=== PATIENT | male | born 1975 | race Caucasian/White ===

== ENCOUNTER 2019-05-07 18:37 | Inpatient (IN) | payer BC, OTHER ==
[~2019-05-07] VITALS: Ht 165.1 cm; Wt 68.0 kg
--- NOTE | 2019-05-07 18:37 | NUR ---
"BIBRA 80 C/O SUBSTERNAL CP S/P HEIMLICH MANEUVER, PT WAS CHOKING" PT AAOX4, -SOB, NADN OTED, VSS, PENDING MD MARQUEZ
[2019-05-07] MEDS ORDERED: ONDANSETRON HCL/PF 4 MG/2 ML VIAL IVP ONE (19:00)
[2019-05-07] MEDS ORDERED: IV NS 0.9% 1,000 ML BAG IV ONE (19:00)
[2019-05-07 19:10] LABS: BASOPHILS % (AUTO) 0.5 % (0.0-2.0); EOSINOPHILS % (AUTO) 5.9 % (0.0-6.0); HEMATOCRIT 41 % (39-51); HEMOGLOBIN 14.1 g/dL (13.5-17.5); LYMPHOCYTES # (AUTO) 2.6 /CMM (0.8-4.8); LYMPHOCYTES % (AUTO) 35.6 % (20.0-44.0); MEAN CORPUSCULAR HGB CONC 34 g/dl (31.0-36.0); MEAN CORPUSCULAR VOLUME 101 fL (80-96); MONOCYTES # (AUTO) 0.7 /CMM (0.1-1.30); MONOCYTES % (AUTO) 9.1 % (2.0-12.0); NEUTROPHILS # (AUTO) 3.6 /CMM (1.8-8.9); NEUTROPHILS % (AUTO) 48.9 % (43.0-81.0); PLATELET COUNT (AUTO) 279 /CMM (150-450); RED BLOOD CELL COUNT(AUTO) 4.08 MIL/uL (4.5-6.0); WHITE BLOOD COUNT (AUTO) 7.4 K/uL (4.3-11.0)
[2019-05-07] MEDS ORDERED: ONDANSETRON HCL/PF 4 MG/2 ML VIAL ONE (19:11)
[2019-05-07] MEDS ORDERED: MORPHINE SULFATE INJ 4 MG/ML DISP.SYRIN ONE ×2 (19:12→20:54)
[2019-05-07 19:23] LABS: CALCIUM, SERUM 8.2 mg/dL (8.5-10.1); CARBON DIOXIDE 31 mmol/L (21-32); CHLORIDE 102 mmol/L (98-107); CREATININE 1.3 mg/dL (0.6-1.3); GLUCOSE 140 mg/dL (74-106); POTASSIUM 3.8 mmol/L (3.5-5.1); SODIUM SERUM 140 mmol/L (136-145); UREA NITROGEN, BLOOD 17 mg/dL (7-18)
[2019-05-07] MEDS: MORPHINE SULFATE INJ 2 MG/ML DISP.SYRIN IV ONE ×2 (19:23→20:57)
[2019-05-07 19:29] LABS: ALANINE AMINOTRANSFERASE 49 U/L (12-78); ALBUMIN 3.7 g/dL (3.4-5.0); ALKALINE PHOSPHATASE 69 U/L (46-116); ASPARTATE AMINOTRANSFERASE 42 U/L (15-37); BILIRUBIN,DIRECT 0.1 mg/dL (0.0-0.2); BILIRUBIN,TOTAL 0.1 mg/dL (0.2-1.0); LIPASE 130 U/L (73-393); TOTAL PROTEIN, SERUM 6.5 g/dL (6.4-8.2)
[2019-05-07] MEDS ORDERED: IV NS 0.9% 250 ML IV ONE (19:37)
[2019-05-07] MEDS ORDERED: IOHEXOL-350 100 ML VIAL IV ONE (19:37)
[2019-05-07] MEDS ORDERED: CT SWABBABLE VALVE TRANS SET 1 EA INFUS.SET MC ONE (19:37)
[2019-05-07] MEDS ORDERED: LIDOCAINE 2% JEL UROJET 10 ML MM ONE (19:41)
--- NOTE | 2019-05-07 20:12 | NUR ---
CALLED DR. LUNA [phone] GI
--- NOTE | 2019-05-07 20:29 | NUR ---
CALLED JEREMY [phone] LOR AGAIN PER MD REQUEST.
--- NOTE | 2019-05-07 20:42 | NUR ---
CALLED FOR TELE BED... TURNED IN MOVE SHEET
--- NOTE | 2019-05-07 20:48 | NUR ---
GOT BED 322-2
--- NOTE | 2019-05-07 21:03 | NUR ---
REPORT GIVEN TO BIANKA WANG FOR JOVANNA, PT WILL BE TRANSPORTED TO 3RD FLOOR VIA [facility]
[2019-05-07 21:30] VITALS: BP 130/96
--- NOTE | 2019-05-07 21:30 | NUR ---
SPECIAL EVENTS COORDINATORCAR EXAMINER NOTES Received patient from ER via [facility] accompanied by 2 ER staff. Admitted to Tele 322-2 due to Chest Pain under the service of Dr. Buck. Assisted patient to bed comfortably. Patient noted able to walk from [facility] to bed with stable gait. Admission routine done. Skin assessment done, per patient no skin/wound issues identified. On tele monitor with SR noted. Patient's belongings inventory completed by the assigned DIRECTOR OF BUSINESS SERVICES. Admission orders noted and carried out. Kept patient on bed comfortably, clean and dry. Call light within easy reach. On fall precautions. Will continue to monitor accordingly.
[2019-05-07] MEDS ORDERED: MORPHINE SULFATE INJ 2 MG/ML DISP.SYRIN IV PRN (23:00)
[2019-05-07] MEDS ORDERED: HYDROCODONE/APAP 5/325MG 1 EACH TABLET PO PRN (23:00)
[2019-05-07] MEDS ORDERED: ACETAMINOPHEN 325 MG TABLET PO PRN (23:00)
[2019-05-07] MEDS ORDERED: Z GUARD REMEDY 2 OZ OINT TP PRN (23:00)
[2019-05-07] MEDS ORDERED: MAG HYDROX/AL HYDROX/SIMETH 30 ML UDC PO PRN (23:00)
[2019-05-07] MEDS ORDERED: MAGNESIUM HYDROXIDE 30 ML UDC PO PRN (23:00)
[2019-05-07] MEDS ORDERED: ZOLPIDEM TARTRATE 5 MG TABLET PO PRN (23:00)
--- NOTE | 2019-05-07 23:00 | NUR ---
GLUE SPREADING MACHINE OPERATOR NOTES Received a call from MICHAEL Ybarra to refer patient's condition to Dr. Mccollum. Called Dr. Mccollum, with orders noted and carried out.
[2019-05-07] MEDS: ONDANSETRON HCL/PF 4 MG/2 ML VIAL IVP PRN (23:48)
[2019-05-07] MEDS: IV D5/0.45 NACL 1,000 ML IV PRN (23:48)
[2019-05-07] MEDS ORDERED: PANTOPRAZOLE 40 MG VIAL IV ONE (23:49)
[2019-05-08] VITALS: BP 133/76
--- NOTE | 2019-05-08 00:24 | NUR ---
INTERIOR DESIGN PROJECT MANAGER NOTES Received orders from Dr. Buck, noted and carried out. Protonix IV out of stock, notified ordering MD. Changed into IV Pepcid as ordered, noted and carried out. First dose to start now, administered as ordered. Patient still noted of occasional spitting with blood. Will continue to monitor accordingly.
[2019-05-08] MEDS ORDERED: FAMOTIDINE/PF INJ 20 MG/2 ML VIAL IV ONE (00:30)
[2019-05-08 04:00] VITALS: BP 128/67
[2019-05-08] MEDS: ONDANSETRON HCL/PF 4 MG/2 ML VIAL IVP PRN (05:55)
[2019-05-08 06:41] LABS: BASOPHILS % (AUTO) 0.2 % (0.0-2.0); EOSINOPHILS % (AUTO) 0.2 % (0.0-6.0); HEMATOCRIT 41 % (39-51); HEMOGLOBIN 13.7 g/dL (13.5-17.5); LYMPHOCYTES # (AUTO) 1.1 /CMM (0.8-4.8); LYMPHOCYTES % (AUTO) 6.6 % (20.0-44.0); MEAN CORPUSCULAR HGB CONC 34 g/dl (31.0-36.0); MEAN CORPUSCULAR VOLUME 101 fL (80-96); MONOCYTES # (AUTO) 1.4 /CMM (0.1-1.30); MONOCYTES % (AUTO) 8.3 % (2.0-12.0); NEUTROPHILS # (AUTO) 14.8 /CMM (1.8-8.9); NEUTROPHILS % (AUTO) 84.7 % (43.0-81.0); PLATELET COUNT (AUTO) 259 /CMM (150-450); RED BLOOD CELL COUNT(AUTO) 4.05 MIL/uL (4.5-6.0); WHITE BLOOD COUNT (AUTO) 17.4 K/uL (4.3-11.0)
--- NOTE | 2019-05-08 06:42 | NUR ---
BODY FITTER CLOSING NOTES Patient intermittently asleep, easily awaken on bed. On RA, no SOB/respiratory distress noted. With occasional spitting with bloody saliva noted. Medicated for pain and nausea, noted with minimal relief. Kept on NPO as ordered. On tele monitor with SR noted. All nursing needs attended. Kept clean, dry and comfortable. On fall precautions, call light within easy reach. For EGD this AM as scheduled, consents signed by the patient. Endorsed to the next shift.
[2019-05-08 06:59] LABS: CALCIUM, SERUM 6.8 mg/dL (8.5-10.1); CREATININE 1.1 mg/dL (0.6-1.3); MAGNESIUM 1.9 mg/dL (1.8-2.4); PHOSPHORUS 2.8 mg/dL (2.5-4.9)
[2019-05-08 07:04] LABS: THYROID STIMULATING HORMONE 0.902 uIU/mL (0.358-3.74)
--- NOTE | 2019-05-08 07:16 | NUR ---
SEXOLOGIST OPENING NOTES Patient received on room air, no sob noted, patient denies pain at this time. A/O x4, on tele with SR. patient remains NPO at this time. Consent signed for EGD. LAC 18 #18 with D5 NS 1/2 NS @ 125 mL per hour. Bed at the lowest setting, call light within reach, side rails up x2.
[2019-05-08 07:31] LABS: ALBUMIN 3.3 g/dL (3.4-5.0); BILIRUBIN,DIRECT 0.1 mg/dL (0.0-0.2); BILIRUBIN,TOTAL 0.5 mg/dL (0.2-1.0); TOTAL PROTEIN, SERUM 6.1 g/dL (6.4-8.2)
[2019-05-08] MEDS: IV D5/0.45 NACL 1,000 ML IV PRN (07:51)
[2019-05-08 08:00] VITALS: BP 120/60
[2019-05-08] MEDS ORDERED: PANTOPRAZOLE 40 MG VIAL IV SCH (09:00)
[2019-05-08] MEDS ORDERED: SUCCINYLCHOLINE CHLORIDE 20 MG/ML VIAL ONE (09:00)
[2019-05-08] MEDS ORDERED: FAMOTIDINE/PF INJ 20 MG/2 ML VIAL IV SCH (09:00)
[2019-05-08] MEDS ORDERED: ENSURE CLEAR 237 ML LIQUID (MIX BERRY) PO SCH (11:00)
[2019-05-08] MEDS ORDERED: IV D5/0.45 NACL 1,000 ML IV PRN (11:15)
[2019-05-08] MEDS ORDERED: POLYETHYLENE GLYCOL 3350 17 GM POWD.PACK PO PRN ×2 (12:30→14:52)
[2019-05-08 16:00] VITALS: BP 114/63
--- NOTE | 2019-05-08 18:11 | NUR ---
RN MS DISCHARGE NOTES Patient discharged at this time. No sob noted, vital signs stable, and patient denies pain at this time. Patient was able to have a BM. Patient has all belongings with him. Paperwork signed, and patient had no further questions with his discharge orders. patient picked up by friend and rode their private car.
[2019-05-09] MEDS ORDERED: PANTOPRAZOLE 40 MG TABLET.DR PO SCH (07:30)
[2019-05-09] MEDS ORDERED: DOCUSATE SODIUM 100 MG CAPSULE PO SCH (09:00)
== END 2019-05-08 18:00 | disposition home or self-care (01) | DRG 393 ==
LOC: ER 18:37 → TELE 21:22 → MED 05-08 11:24
PROVIDERS: ADMIT Student in an Organized Health Care Education/Training Program; ATTEND Hospitalist
DX: T18.128A Food in esophagus causing other injury, initial encounter (principal); K22.6 Gastro-esophageal laceration-hemorrhage syndrome; K22.2 Esophageal obstruction; K22.70 Barrett's esophagus without dysplasia; R13.10 Dysphagia, unspecified; R07.9 Chest pain, unspecified; K44.9 Diaphragmatic hernia without obstruction or gangrene; E83.51 Hypocalcemia; R74.0 Nonspecific elevation of levels of transaminase and lactic acid dehydrogenase [LDH]; D72.829 Elevated white blood cell count, unspecified; K21.0 Gastro-esophageal reflux disease with esophagitis; K29.70 Gastritis, unspecified, without bleeding; K29.80 Duodenitis without bleeding; X58.XXXA Exposure to other specified factors, initial encounter; Y92.89 Other specified places as the place of occurrence of the external cause
CPT/HCPCS: 36415; 71045-TC; 80048-TC; 80061-TC; 80076-TC; 83690-TC; 83735-TC; 84100-TC; 84443-TC; 84484-TC; 85025-TC; 85027-TC; 85730-TC; 87081-TC; C9113; G0378; J0330; J2270; J2405; J2704; J3490; J7030; J7050; Q9967

== ENCOUNTER 2019-05-10 13:08 | Outpatient (CLI) | payer BC, OTHER | END 2019-05-10 23:59 | disposition home or self-care (01) | LOC: MSC 13:08 | PROVIDERS: ATTEND Internal Medicine | DX: K22.6 Gastro-esophageal laceration-hemorrhage syndrome (principal); Z98.890 Other specified postprocedural states ==

== ENCOUNTER 2019-07-30 23:03 | Emergency (ER) | payer BC, OTHER ==
[~2019-07-30] VITALS: Ht 165.1 cm; Wt 69.4 kg
--- NOTE | 2019-07-30 23:35 | NUR ---
[id number] FROM HOME C/O GENERALIZED BODY PAIN. -DYSURIA, -NAUSEA/VOMITTING, - NAUSEA, - VOMITING. TO ER BED 4, GEN BODY PAIN 07/07, VSS, AWAITING MED EVAL
[2019-07-31] MEDS ORDERED: KETOROLAC TROMETHAMINE INJ 30 MG/ML VIAL IV ONE
[2019-07-31] MEDS ORDERED: HYDROMORPHONE INJ 2 MG/ML DISP.SYRIN IV ONE
[2019-07-31] MEDS ORDERED: ONDANSETRON HCL/PF 4 MG/2 ML VIAL IVP ONE
[2019-07-31] MEDS ORDERED: KETOROLAC TROMETHAMINE 15 MG/ML VIAL ONE (00:03)
[2019-07-31] MEDS ORDERED: ONDANSETRON HCL/PF 4 MG/2 ML VIAL ONE (00:03)
[2019-07-31] MEDS ORDERED: HYDROMORPHONE 1 MG/1 ML DISP.SYRIN ONE ×3 (00:03→04:01)
[2019-07-31 00:22] LABS: BASOPHILS % (AUTO) 0.2 % (0.0-2.0); EOSINOPHILS % (AUTO) 1.2 % (0.0-6.0); HEMATOCRIT 44 % (39-51); HEMOGLOBIN 14.9 g/dL (13.5-17.5); LYMPHOCYTES # (AUTO) 2.9 /CMM (0.8-4.8); LYMPHOCYTES % (AUTO) 20.2 % (20.0-44.0); MEAN CORPUSCULAR HGB CONC 34 g/dl (31.0-36.0); MEAN CORPUSCULAR VOLUME 99 fL (80-96); MONOCYTES # (AUTO) 0.6 /CMM (0.1-1.30); MONOCYTES % (AUTO) 4.1 % (2.0-12.0); NEUTROPHILS # (AUTO) 10.5 /CMM (1.8-8.9); NEUTROPHILS % (AUTO) 74.3 % (43.0-81.0); PLATELET COUNT (AUTO) 281 /CMM (150-450); RED BLOOD CELL COUNT(AUTO) 4.46 MIL/uL (4.5-6.0); WHITE BLOOD COUNT (AUTO) 14.2 K/uL (4.3-11.0)
[2019-07-31 00:37] LABS: CALCIUM, SERUM 8.4 mg/dL (8.5-10.1); CARBON DIOXIDE 27 mmol/L (21-32); CHLORIDE 100 mmol/L (98-107); CREATININE 1.1 mg/dL (0.6-1.3); GLUCOSE 183 mg/dL (74-106); POTASSIUM 3.7 mmol/L (3.5-5.1); SODIUM SERUM 138 mmol/L (136-145); UREA NITROGEN, BLOOD 21 mg/dL (7-18)
[2019-07-31 00:50] LABS: ALANINE AMINOTRANSFERASE 37 U/L (12-78); ALBUMIN 4.4 g/dL (3.4-5.0); ALKALINE PHOSPHATASE 58 U/L (46-116); ASPARTATE AMINOTRANSFERASE 26 U/L (15-37); B-TYPE NATRIURETIC PEPTIDE 56 PG/ML (0-125); BILIRUBIN,DIRECT 0.1 mg/dL (0.0-0.2); BILIRUBIN,TOTAL 0.2 mg/dL (0.2-1.0); MAGNESIUM 1.8 mg/dL (1.8-2.4); PHOSPHORUS 5.2 mg/dL (2.5-4.9); TOTAL PROTEIN, SERUM 7.5 g/dL (6.4-8.2)
[2019-07-31] MEDS ORDERED: IOHEXOL-300 100 ML VIAL IV ONE (01:35)
--- NOTE | 2019-07-31 01:54 | NUR ---
FLO ROOMATE: [phone]
--- NOTE | 2019-07-31 01:58 | NUR ---
PT BACK FROM CT
[2019-07-31] MEDS ORDERED: HYDROMORPHONE INJ 0.5 MG/0.5 ML SYRINGE IV ONE ×2 (02:00→04:30)
--- NOTE | 2019-07-31 02:32 | NUR ---
PT DESATING TO 80% PLACED ON O2 2L NOW AT 96%, OTHER VSS WILL CONTINUE TO MONITOR
--- NOTE | 2019-07-31 02:45 | NUR ---
INITIATED MAC TRANSFER. [employer] [facility] OVER.
--- NOTE | 2019-07-31 02:51 | NUR ---
CLINICALS+FACESHEET FAXED TO [facility] TRANSFER LINE. AWAITING RESPONSE.
--- NOTE | 2019-07-31 02:58 | NUR ---
CLINICALS + FACE SHEET FAXED OVER TO [facility]. AWAITING RESPONSE.
--- NOTE | 2019-07-31 03:12 | NUR ---
CLINICALS AND FACE SHEET FAXED OVER TO [facility] TRANSFER LINE. AWAITING RESPONSE
--- NOTE | 2019-07-31 03:20 | NUR ---
[facility] ICU AT [facility]. UNABLE TO ACCEPT PATIENT AT THIS TIME. WILL TRY AGAIN IN THE MORNING PER [facility]. AWARE
[2019-07-31] MEDS ORDERED: PIPERACILLIN /TAZOBACTAM 3.375 G VIAL IV ONE (03:44)
[2019-07-31] MEDS ORDERED: IV NS 0.9% 1,000 ML BAG IV ONE ×2 (04:00)
[2019-07-31] MEDS ORDERED: FLUCONAZOLE IN NS,PREMIX 200 MG in PREMIX 1 EA IV SCH ×2 (04:00)
[2019-07-31] MEDS ORDERED: PIPERACILLIN /TAZOBACTAM 3.375 G in IV D5W 50 ML IV ONE (04:00)
--- NOTE | 2019-07-31 04:00 | NUR ---
ADDENDUM: Intravenous End Time Documentation: Diflucan 400 mg /100 ml : start time:0400 ; end time: 0500: IV site: [facility] #16 Port # 1
--- NOTE | 2019-07-31 04:26 | NUR ---
PER WOOD MODEL BUILDER MIN: ACCEPTED TO [facility]. ER REPORT. [facility] ETA:[id number] #[id number]
--- NOTE | 2019-07-31 04:37 | NUR ---
CALLED IN REPORT TO RAYRAY WANG AT THE [facility] ER
[2019-07-31] MEDS ORDERED: FLUCONAZOLE IN NS 100 ML IV ONE (04:39)
[2019-07-31 05:08] VITALS: BP 137/87
--- NOTE | 2019-07-31 05:17 | NUR ---
REPORT GIVEN TO AMBULANCE DIRECTOR STRATEGY
--- NOTE | 2019-07-31 05:23 | NUR ---
PT TRANSPORTED OUT OF HOSPITAL VIA [facility]
== END 2019-07-31 05:27 | disposition short-term general hospital (02) ==
LOC: ER 23:04
DX: K22.3 Perforation of esophagus (principal); R10.84 Generalized abdominal pain; J98.2 Interstitial emphysema; J90 Pleural effusion, not elsewhere classified; R74.0 Nonspecific elevation of levels of transaminase and lactic acid dehydrogenase [LDH]; F10.10 Alcohol abuse, uncomplicated; Y90.9 Presence of alcohol in blood, level not specified; Z60.2 Problems related to living alone
CPT/HCPCS: 36415; 71045; 74177; 80048; 80076; 82550; 83605; 83690; 83735; 83880; 84100; 84484; 85025; 85378; 85610; 86850; 87081; 93005; 96365; 96367; 96368; 96375; 96376; 99285; J1170 ×3; J1450; J1885; J2405; J2543; J7030; Q9967; A4216; J7060